=== PATIENT | female | born 1960 | race Caucasian/White ===

== ENCOUNTER 2025-02-15 11:28 | Emergency (ER) | payer MEDICAID ==
[~2025-02-15] VITALS: Ht 167.6 cm; Wt 69.2 kg
[2025-02-15 11:31] VITALS: BP 142/60; PULSE 83; RESP 16; TEMP 97.9; O2SAT 99
--- NOTE | 2025-02-15 11:39 | Physician Documentation ---
History of Present Illness ~ Chief Complaint: Wrist pain Stated Complaint: L WRIST PAIN Time Seen by MD: 11:39 HPI 64-year-old female who presents with left wrist pain after a fall She tells me that she tripped over her dog, and fell, landing on her left wrist and elbow. She has pain in the left wrist, primarily the radial side. There was bruising and swelling to the back of the hand. She has an abrasion to her left elbow, but denies any significant elbow pain. She states that her hand was numb earlier but it is no longer numb. She is left-handed. She denies any other significant injuries. No head or neck injury. No significant leg injury. She is able to walk without difficulty. Medication Reconciliation Allergies: Coded Allergies: cephalexin (Verified Allergy, Unknown, RASH, 02/15/25) Review of Systems Musculoskeletal: Reports: pain, swelling Integumentary: Reports: wound(s) Physical Exam Vital Signs: Temperature: 97.9, Source: Temporal, Heart Rate: 83, Respiratory Rate: 16, BP: 142/60, Pulse Oximetry: 99, Weight: 69.200 Oxygen Flow Rate: 0 Physical Exam General: This is a pleasant and overall healthy-appearing middle-aged woman, who appears to be using both of her hands to gesture and use her phone during my exam without significant pain or limitation HEENT: Atraumatic, oropharynx is moist Heart: Regular rate, normal-appearing peripheral perfusion Lungs: normal work of breathing, normal oxygen saturation on room air Extremities: Warm and well-perfused Left upper extremity: The patient does have bruising and swelling to the posterior hand and wrist. She has tenderness to palpation diffusely in this region including she does have tenderness on palpation of the distal radius and snuffbox region. She has a small abrasion to the posterior elbow, but no focal bony point tenderness on palpation of the elbow, no pain with range of motion of the elbow. Grossly normal sensation to light touch in the hand Neuro: Alert and oriented Psychiatric: Calm and cooperative with exam Progress Results/Orders Results/Orders Orders - CLARA CACERES MD Wrist, Complete (3vw Min) (02/15/25 11:41) Completed Orders - CLARA CACERES MD Wrist, Complete (3vw Min) (02/15/25 11:41) Vital Signs 02/15/25 11:31 Temp 97.9 Pulse 83 Resp 16 B/P (MAP) 142/60 Pulse Ox 99 O2 Flow Rate 0 EKG/XRAY/CT/US/VASC/MRI Bone/Soft Tissue X-Ray (Ext.) : Additional Comment I personally interpreted the x-ray, and it shows: No acute fracture or dislocation to the wrist or bones of the hand Medical Decision Making General Diff Dx:Considerations: Include: Abrasion, Contusion, Fracture, Sprain Additional Comment The patient presents with isolated left wrist pain after a fall. She does have some tenderness including around the snuffbox, but otherwise has no evidence of a significant displaced fracture. She was given ice. X-ray does not show a fracture. However she does have tenderness over the scaphoid and so she will be placed in a thumb spica splint with outpatient follow up. Departure Time of Disposition: 12:12 Disposition: 01 HOME / SELF CARE / HOMELESS Impression: Primary Impression: Left wrist sprain Condition: Stable Discharge Instructions: Scaphoid Fracture, Wrist Sprain, Adult Referrals: NO PRIMARY CARE PROVIDER (PCP) Education Educated: Patient Educated regarding: diagnosis, treatment, need for follow up Signature Scribe Signature: na Attestation: CLARA Pagan MD Feb 15, 2025 11:39
--- NOTE | 2025-02-15 11:51 | RADIOLOGY REPORT ---
CLINICAL INDICATION: WRIST PAIN TECHNIQUE: 3 views of the left wrist were performed. DI WRIST, COMPLETE (3VW MIN) Comparison: None FINDINGS/IMPRESSION: 1. No acute fracture or dislocation of the left wrist. 2. 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
== END 2025-02-15 12:26 | disposition home or self-care (01) ==
LOC: ER 11:28
DX: S50.312A Abrasion of left elbow, initial encounter (principal); S63.502A Unspecified sprain of left wrist, initial encounter; Z88.1 Allergy status to other antibiotic agents; W01.0XXA Fall on same level from slipping, tripping and stumbling without subsequent striking against object, initial encounter; Y93.89 Activity, other specified; Y92.89 Other specified places as the place of occurrence of the external cause; Y99.8 Other external cause status
CPT/HCPCS: 29125; 73110; 99284